=== PATIENT | male | born 1955 | race Caucasian/White ===

== ENCOUNTER → 2018-11-18 | Outpatient (CLI) | payer BC, OTHER ==
--- NOTE | 2018-11-18 11:39 | RAD ---
EXAM: Lumbar spine, 2 views. HISTORY: Pain. COMPARISON: None. FINDINGS: 2 views lumbar spine are obtained. There is mild lumbar dextroscoliosis centered at L3. There is a transitional lumbosacral segment, considered a sacralized L6 segment with rudimentary L6-S1 disc for this dictation. There is no significant listhesis. There is degenerative endplate remodeling at the mid and lower lobar levels. There is facet arthropathy at the lower lumbar levels. No fracture is seen. IMPRESSION: 1. Multilevel degenerative change within the lumbar spine, primarily at the lower lumbar levels. 2. Mild lumbar scoliosis. 3. Transitional lumbosacral segment, a normal variant. Electronically signed by: Mandy Hawthorne MD (11/18/2018 11:36 AM) [facility]
== END | disposition home or self-care (01) ==
LOC: RAD 10:25
PROVIDERS: ATTEND Family Medicine
DX: M47.816 Spondylosis without myelopathy or radiculopathy, lumbar region (principal); M41.86 Other forms of scoliosis, lumbar region; M12.88 Other specific arthropathies, not elsewhere classified, other specified site
CPT/HCPCS: 72100

== ENCOUNTER 2019-05-16 06:07 | Emergency (ER) | payer OTHER ==
[~2019-05-16] VITALS: Ht 182.9 cm; Wt 97.5 kg
[2019-05-16] MEDS ORDERED: LIDOCAINE 2% JELLY 6ML IN APPLICATOR. ONE (06:36)
--- NOTE | 2019-05-16 06:46 | PHYS DOC ---
Adult General Chief Complaint Chief Complaint: URINARY RETENTION HPI HPI 64 yo male presents to the ER with complaints of urinary retention. Patient states this started approximately 8 hours ago. Patient states he has a history of BPH. Patient follows with Dr. Tom Thrasher (urology). Patient denies nausea, vomiting, fever. Patient with abdominal distention. Nothing makes pain worse or better. Review of Systems Review of Systems Constitutional: Denies fever or chills [] Respiratory: Denies cough or shortness of breath [] Cardiovascular: No additional information not addressed in HPI [] GI: + abdominal pain distention, no nausea, vomiting, bloody stools or diarrhea [] : Denies dysuria or hematuria [] Musculoskeletal: Denies back pain or joint pain [] Integument: Denies rash or skin lesions [] Neurologic: Denies headache, focal weakness or sensory changes [] All other systems were reviewed and found to be within normal limits, except as documented in this note. Current Medications Current Medications Current Medications Medications (Trade) Dose Ordered Sig/Aime Start Time Stop Time Status Last Admin Dose Admin Lidocaine HCl (Glydo (Lidocaine) Jelly) 1 ari 1X ONCE 05/16/19 07:00 05/16/19 07:01 DC 05/16/19 06:40 1 ARI Allergies Allergies Allergies Coded Allergies Type Severity Reaction Last Updated Verified No Known Drug Allergies 05/16/19 No Physical Exam Physical Exam Constitutional: Well developed, well nourished, no acute distress, non-toxic appearance. [] HENT: Normocephalic, atraumatic, bilateral external ears normal, oropharynx moist, no oral exudates, nose normal. [] Cardiovascular:Heart rate regular rhythm, no murmur [] Lungs & Thorax: Bilateral breath sounds clear to auscultation [] Abdomen: Bowel sounds normal, soft, no tenderness, no masses, no pulsatile masses. [] Skin: Warm, dry, no erythema, no rash. [] Back: No tenderness, no CVA tenderness. [] Extremities: No tenderness, no edema. [] Neurologic: Alert and oriented X 3, no focal deficits noted. [] Psychologic: Affect normal, judgement normal, mood normal. [] Current Patient Data Vital Signs Vital Signs Date Time Temp Pulse Resp B/P (MAP) Pulse Ox O2 Delivery O2 Flow Rate FiO2 05/16/19 06:23 97.6 76 20 130/90 (103) 93 Room Air 97.6 Lab Values Laboratory Tests Test 05/16/19 06:54 Urine Collection Type Unknown Urine Color Yellow Urine Clarity Clear Urine pH 5.5 Urine Specific [place] 1.015 Urine Protein Negative mg/dL (NEG-TRACE) Urine Glucose (UA) Negative mg/dL (NEG) Urine Ketones (Stick) Negative mg/dL (NEG) Urine Blood Large (NEG) Urine Nitrite Positive (NEG) Urine Bilirubin Negative (NEG) Urine Urobilinogen Dipstick 0.2 mg/dL (0.2 mg/dL) Urine Leukocyte Esterase Large (NEG) Urine RBC 6-10 /HPF (0-2) Urine WBC Tntc /HPF (0-4) Urine Bacteria Many /HPF (0-FEW) EKG EKG [] Radiology/Procedures Radiology/Procedures [] Course & Med Decision Making Course & Med Decision Making Pertinent Labs and Imaging studies reviewed. (See chart for details) []64 yo male presents to the ER with complaints of urinary retention. Patient states this started approximately 8 hours ago. Patient states he has a history of BPH. Patient follows with Dr. Tom Thrasher (urology). Patient denies nausea, vomiting, fever. Patient with abdominal distention. Nothing makes pain worse or better. Campbell catheter in place > 200 ml appreciated UAD reviewed - + UTI Plan abx upon discharge Kristan Disclaimer Kristan Disclaimer This electronic medical record was generated, in whole or in part, using a voice recognition dictation system. Departure Departure Impression: Primary Impression: Urinary retention due to benign prostatic hyperplasia Additional Impression: UTI (urinary tract infection) Disposition: 01 HOME, SELF-CARE Condition: STABLE Referrals: ERASTO AKERS MD (PCP) Patient Instructions: Urinary Retention, Acute, Male, [id number], Urinary Tract Infection, [id number] Additional Instructions: Recommend follow up with PCP 3 - 5 days Return to the ER with worsening symptoms, intractable pain, fever, altered mental status Tylenol/Motrin as needed for pain Abx as directed Recommend following up with Urology, call office today regarding follow up times Keep leg bag in place until seen by Urology Scripts Cephalexin (KEFLEX) 500 Mg Capsule 2 CAP PO Q12HR for 5 Days, #20 CAP Prov: DANTE GUARDADO MD 05/16/19 Problem Qualifiers DANTE GUARDADO MD May 16, 2019 06:46
[2019-05-16] MEDS ORDERED: LIDOCAINE 2% JELLY 6ML IN APPLICATOR. MM ONE (07:00)
[2019-05-16 07:25] LABS: BILIRUBIN,URINE NEGATIVE (NEG); CLARITY,URINE CLEAR; COLOR,URINE YELLOW; NITRITE,URINE POSITIVE (NEG); PH,URINE 5.5; PROTEIN,URINE NEGATIVE (NEG-TRACE); UROBILINOGEN,URINE 0.2 mg/dL (0.2 mg/dL)
[2019-05-16 07:33] LABS: BACTERIA,URINE MANY /HPF (0-FEW); WBC,URINE TNTC /HPF (0-4)
[2019-05-16] MEDS ORDERED: CEPH-264 PO (07:39)
[2019-05-16 07:48] VITALS: BP 139/83
== END 2019-05-16 07:48 | disposition home or self-care (01) ==
LOC: ER 06:07
DX: N40.1 Benign prostatic hyperplasia with lower urinary tract symptoms (principal); R33.8 Other retention of urine
CPT/HCPCS: 51702; 81001; 87086; 99284; A4314

== ENCOUNTER 2019-05-18 11:25 | Emergency (ER) | payer OTHER ==
[~2019-05-18 11:25] MED LIST: CEPH-264 PO
[2019-05-18] MEDS ORDERED: IV NORMAL SALINE 1000ML BAG 1,000 ML IV SCH (11:37)
[2019-05-18] MEDS ORDERED: ONDANSETRON PF 4 MG/2 ML VIAL. IV ONE (11:45)
[2019-05-18 11:47] LABS: BASO # 0.1 x10^3/uL (0.0-0.2); BASO % 0 % (0-3); EOS % 0 % (0-3); HEMATOCRIT 47.3 % (39.0-53.0); HEMOGLOBIN 16.1 g/dL (13.0-17.5); LYMPH # 0.6 x10^3/uL (1.0-4.8); LYMPH % 3 % (24-48); MEAN CORPUSCULAR HEMOGLOBIN 32 pg (25-35); MEAN CORPUSCULAR HGB CONC 34 g/dL (31-37); MEAN CORPUSCULAR VOLUME 95 fL (79-100); MONO # 1.1 x10^3/uL (0.0-1.1); MONO % 6 % (0-9); NEUT # 16.8 x10^3/uL (1.8-7.7); NEUT % 91 % (31-73); PLATELET COUNT 216 x10^3/uL (140-400); RED BLOOD COUNT 4.95 x10^6/uL (4.30-5.70); RED CELL DISTRIBUTION WIDTH 13.6 % (11.5-14.5); WHITE BLOOD COUNT 18.5 x10^3/uL (4.0-11.0)
[2019-05-18] MEDS: fentaNYL PF VIAL 100 MCG/2 ML VIAL IV PRN ×2 (11:53→12:50)
[2019-05-18 11:57] LABS: CALCIUM 8.9 mg/dL (8.5-10.1); CREATININE 1.7 mg/dL (0.7-1.3); POTASSIUM 3.8 mmol/L (3.5-5.1)
[2019-05-18 12:03] LABS: ALBUMIN 2.8 g/dL (3.4-5.0); ALBUMIN/GLOBULIN RATIO 0.8 (1.0-1.7); TOTAL BILIRUBIN 1.1 mg/dL (0.2-1.0); TOTAL PROTEIN 6.4 g/dL (6.4-8.2)
[2019-05-18 12:12] LABS: % BANDS 3 % (0-9); % EOS 1 % (0-5); % LYMPHS 1 % (24-48); % MONOS 1 % (0-10); % SEGS 94 % (35-66); PLT ESTIMATE ADEQUATE (ADEQUATE)
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
--- NOTE | 2019-05-18 13:06 | RAD ---
RIBS BILAT PA CXR 4+V History: Fall. Rib pain. Technique: PA view the chest and 2 views bilateral ribs. Comparison: None. Findings: Elevation the right hemidiaphragm. No consolidation or pleural effusion. No pneumothorax. Normal heart size. No displaced rib fractures. Impression: 1. No acute pulmonary process. No displaced rib fractures. 2. Elevation of the right hemidiaphragm. Electronically signed by: Juan Miguel Smith DO (05/18/2019 1:03 PM) [facility]
--- NOTE | 2019-05-19 08:15 | EKG ---
[facility] [address] [place] [address] Test Date: 2019-05-18 Test Time: 12:22:20 Pat Name: PHANI BRAOV Department: Room: Gender: M Roll Builder: : [id number] Requested By: LLUVIA BRADLEY Order Number: [id number] Reading MD: Measurements Intervals [place] Rate: 71 P: -15 UT: 262 QRS: -29 QRSD: 184 T: 144 QT: 452 QTc: 496 Interpretive Statements SINUS RHYTHM PROLONGED UT INTERVAL LEFTWARD AXIS NON SPECIFIC INTRAVENTRICULAR BLOCK QRS(T) CONTOUR ABNORMALITY CANNOT RULE OUT ANTEROLATERAL MYOCARDIAL DAMAGE ABNORMAL ECG No previous ECG available for comparison
== END 2019-05-18 13:36 | disposition short-term general hospital (02) ==
LOC: ER 11:25
DX: T21.03XA Burn of unspecified degree of upper back, initial encounter (principal); T22.00XA Burn of unspecified degree of shoulder and upper limb, except wrist and hand, unspecified site, initial encounter; T21.02XA Burn of unspecified degree of abdominal wall, initial encounter; T31.21 Burns involving 20-29% of body surface with 10-19% third degree burns; E11.9 Type 2 diabetes mellitus without complications; E78.00 Pure hypercholesterolemia, unspecified; I10 Essential (primary) hypertension; X11.0XXA Contact with hot water in bath or tub, initial encounter; Y93.89 Activity, other specified; Y92.89 Other specified places as the place of occurrence of the external cause; Y99.8 Other external cause status
CPT/HCPCS: 36415; 71111; 80053; 85007; 85025; 93005; 96374; 96375; 99285; J2405; J3010; J7030